=== PATIENT | female | born 2000 | race Caucasian/White ===

== ENCOUNTER 2020-07-02 00:23 | Emergency (ER) | payer OTHER, SELFPAY ==
--- NOTE | ~2020-07-02 | CT_ITS ---
EXAMINATION: CT facial bones wo con DATE: 07/02/2020 01:00 INDICATION: Head injury. TECHNIQUE: Computed tomography (CT) of the facial bones and maxillofacial region was performed withou t intravenous contrast. Automated exposure control and iterative reconstruction technique were employ ed. The dose-length product was 332.92 mGy-cm. COMPARISON: None. FINDINGS: There is right periorbital soft tissue swelling. There is a fracture of the posterior wall of right frontal sinus with tiny foci of pneumocephalus. There is mucosal thickening in the paranasal sinuses. There is rightward deviation of the nasal septum. IMPRESSION: 1. Fracture of the posterior wall of right frontal sinus with tiny foci of pneumocephalus. Reviewed, dictated and finalized at location A. IMPRESSION: 1. Fracture of the posterior wall of right frontal sinus with tiny foci of pneu mocephalus.
--- NOTE | ~2020-07-02 | CT_ITS ---
EXAMINATION: CT brain wo con DATE: 07/02/2020 01:57 INDICATION: Head injury. TECHNIQUE: Computed tomography (CT) of the head was performed without intravenous contrast. The mA wa s adjusted according to patient size. Iterative reconstruction technique was employed. The dose-lengt h product was 605.33 mGy-cm. COMPARISON: None FINDINGS: There is hypoattenuation in the right frontal lobe periventricular white matter. There is n o intracranial hemorrhage, acute infarction, or abnormal intracranial mass lesion. The ventricles are normal in size. There is mild mucosal thickening in the paranasal sinuses. The mastoid air cells are normal. There is right periorbital soft tissue swelling. There is a fracture of the posterior wall o f right frontal sinus with tiny foci of pneumocephalus. IMPRESSION: 1. Fracture of the posterior wall of right frontal sinus with tiny foci of pneumocephalus. 2. Hypoattenuation in the right frontal lobe periventricular white matter. The differential diagnosis includes premature chronic small vessel ischemic disease (especially if the patient has cardiovascul ar risk factors), demyelinating disease such as multiple sclerosis, drug abuse, vasculitis, or reacti ve astrocytosis (gliosis) secondary to nonspecific etiology. Reviewed, dictated and finalized at location A. IMPRESSION: 1. Fracture of the posterior wall of right frontal sinus with tiny foci of pneu mocephalus. 2. Hypoattenuation in the right frontal lobe periventricular white matter. The differential diagnosis includes premature chronic small vessel ischemic disease (especially if the patient has cardiovascular risk factors), demyelinating dis ease such as multiple sclerosis, drug abuse, vasculitis, or reactive astrocytos is (gliosis) secondary to nonspecific etiology.
[2020-07-02 00:27] VITALS: BP 153/94; PULSE 135; RESP 16; TEMP 36.7; O2SAT 98
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
[2020-07-02 02:48] VITALS: BP 154/92; PULSE 104; RESP 16; TEMP 36.7; O2SAT 98
--- NOTE | 2020-07-02 03:12 | PC.NURSE ---
0242: called [facility] to transport patient to [facility] ER....ETA [id number]. 0258: CANCELLED.
--- NOTE | 2020-07-02 03:13 | PC.NURSE ---
0250: CALLED [facility] to transport patient to [facility] ER. ... ETA DRIVE TIME FROM [facility]
[2020-07-02 03:34] VITALS: BP 144/89; PULSE 98; RESP 16; TEMP 36.7; O2SAT 100
== END 2020-07-02 03:35 | disposition short-term general hospital (02) ==
PROVIDERS: Emergency Provider Emergency Medicine
DX: S02.19XA Other fracture of base of skull, initial encounter for closed fracture (principal); G93.89 Other specified disorders of brain; W01.198A Fall on same level from slipping, tripping and stumbling with subsequent striking against other object, initial encounter
CPT/HCPCS: 70450; 70486; 99284; 99285

== ENCOUNTER 2020-12-27 10:02 | Emergency (ER) | payer OTHER, SELFPAY ==
[2020-12-27 10:13] VITALS: BP 122/78; PULSE 85; RESP 16; TEMP 37.4; O2SAT 100
[2020-12-27 10:19] VITALS: BP 122/78; PULSE 85; RESP 16; TEMP 37.4; O2SAT 100
--- NOTE | 2020-12-27 10:34 | ED.SKABFB ---
HPI - Skin/Abscess/Foreign Bdy General Chief complaint: Skin/Abscess/Foreign Body Stated complaint: Rash Time Seen by Provider: 12/27/20 10:26 Source: patient and RN notes reviewed Mode of arrival: ambulatory Limitations: no limitations History of Present Illness HPI narrative: 20-year-old female presents with concern for itchy rash that started on Sunday. Reports the rash changes location, reports it is currently on her left shoulder and upper back. Reports she will have spots of red itchy rash that moved from her arm to the side of her face to her neck. Reports the rash is never in the same place twice. She denies any history of allergic reaction, allergies. She denies any new foods. Reports she received a flu shot on . Reports she has not had a flu shot in the past that she is aware of. She denies any lip swelling, tongue swelling, trouble breathing. Reports she takes Benadryl with temporary mild relief. Reports she does not like taking Benadryl because it makes her tired. Reports she has to be in school and cannot be sleepy. MD complaint: rash Related Data Home Medications Medication Instructions Recorded Confirmed norgestimate-ethinyl estradiol 1 tablet PO DAILY 07/02/20 12/27/20 [Sprintec (28)] bupropion HCl [Wellbutrin XL] 150 mg PO DAILY 12/27/20 12/27/20 Allergies Allergy/AdvReac Type Severity Reaction Status Date / Time No Known Allergies Allergy Verified 12/27/20 10:06 Review of Systems Review of Systems: CONSTITUTIONAL: Denies malaise, chills, sweats, or fever. EYES: Denies visual changes, redness, or discharge. ENT: Denies swollen lips, swollen tongue CARDIOVASCULAR: Denies chest pain, palpitations, or edema. RESPIRATORY: Denies cough or dyspnea. GASTROINTESTINAL: Deniesnausea, vomiting, diarrhea SKIN: Reports itchy rash All systems reviewed & are unremarkable except as noted in HPI and below PMFSH Past Medical History Medical History (Updated 12/27/20 @ 10:35 by Darlene Grossman NP) Healthy female adult Surgical History Surgical History (Updated 07/02/20 @ 01:10 by Denilson Reyes MD) No history of previous surgery Social History Social History (Updated 07/02/20 @ 01:11 by Denilson Reyes MD) Alcohol intake: current Gender identity (if verbalized by the patient): Female Comments At time of signature, agree with nursing past medical, surgical, social and family history. There is no relevant family history pertinent to the presenting complaint Exam Narrative: GENERAL: Well-appearing, well-nourished, and in no acute distress. HEAD: Normocephalic, atraumatic. EYES: PERRLA, conjunctivae clear ENT: Mucous membranes moist. Oropharynx without edema, erythema or lesions. No swollen lips, tongue NECK: Supple. No lymphadenopathy CHEST: Clear to auscultation. No respiratory distress. HEART: Regular rate and rhythm. SKIN: Warm, dry. Urticarial rash noted to the left upper chest, left upper back NEURO: Alert and oriented x3. PSYCH: Normal mood and affect Course Course Emergency Course: Patient is aware of diagnosis, understands and agrees to treatment plan. Anticipatory guidance given. Patient agrees to follow-up as directed and is aware of reasons to seek care at the emergency department. Portions of this record may have been created with voice recognition software Vital Signs Vital signs: Vital Signs Temperature 99.4 F 12/27/20 10:13 Pulse Rate 85 12/27/20 10:13 Respiratory Rate 16 12/27/20 10:13 Blood Pressure 122/78 12/27/20 10:13 Pulse Oximetry 100 12/27/20 10:13 Temperature 99.4 F 12/27/20 10:19 Pulse Rate 85 12/27/20 10:19 Respiratory Rate 16 12/27/20 10:19 Blood Pressure 122/78 12/27/20 10:19 Pulse Oximetry 100 12/27/20 10:19 Reviewed. MDM - Skin/Abscess/Foreign Bdy MDM Narrative Medical decision making narrative: Does not appear at this time to be erythema multiforme, bullous, SJS, TEN; no evidence at this
== END 2020-12-27 10:38 | disposition home or self-care (01) ==
PROVIDERS: Emergency Provider Nurse Practitioner
DX: L50.9 Urticaria, unspecified (principal)
CPT/HCPCS: 99213; G0463